=== PATIENT | female | born 1950 | race Caucasian/White ===

== ENCOUNTER → 2017-01-05 | Outpatient (CLI) | payer OTHER | END | disposition home or self-care (01) | LOC: GMAH 17:27 | PROVIDERS: ATTEND Family Medicine | DX: Z77.21 Contact with and (suspected) exposure to potentially hazardous body fluids (principal) ==

== ENCOUNTER 2017-03-03 06:22 | Emergency (ER) | payer OTHER ==
[2017-03-03 06:43] VITALS: BP 118/71; TEMP 99.1; O2SAT 100
--- NOTE | 2017-03-03 06:46 | ED.PDOC ---
History of Present Illness - General Source: patient Exam Limitations: no limitations - History of Present Illness Initial Comments: Courtney Haider 66 y/o female stated she had sudden onset of left knee pain after coming out of the bathroom early this morning .No history of fall or twisting injury. Occurred: just prior to arrival Pain - Lower Extremity: moderate: Left Knee Method of Injury: unknown Improving Factors: rest Worsening Factors: movement Associated Symptoms: Pain on weight bearing <Burt Cleaning - Last Filed: 03/03/17 06:43> <Francisco Macario - Last Filed: 03/03/17 08:01> - General Chief Complaint: Lower Extremity Injury Stated Complaint: left knee swollen and painful Time Seen by Provider: 03/03/17 06:43 - History of Present Illness Allergies/Adverse Reactions: Allergies Penicillin G Allergy (Verified 03/03/17 06:42) Home Medications: Ambulatory Orders Fenofibrate Micronized 134 mg PO DAILY 08/05/16 Levocetirizine Dihydrochloride [Levocetirizine Dihydrochl] 5 mg PO DAILY Lisinopril 20 mg PO DAILY 08/05/16 Meloxicam 15 mg PO DAILY 08/05/16 Pantoprazole Sodium 40 mg PO DAILY 08/05/16 Mjvuzdfhvyyyz-Ysgi-Dtfhcqpcbn [Fioricet] 1 ea PO Q8H PRN #21 tab 03/03/17 Cholecalciferol [Vitamin D] 1,000 unit PO DAILY 03/03/17 Multiple Vitamins W/ Minerals [Multivitamin Adults] 1 tab PO DAILY 03/03/17 Review of Systems - Review of Systems Constitutional: States: no symptoms reported EENTM: States: no symptoms reported Respiratory: States: no symptoms reported Cardiology: States: no symptoms reported Gastrointestinal/Abdominal: States: no symptoms reported Genitourinary: States: no symptoms reported Musculoskeletal: States: see HPI, joint pain, joint swelling - left knee Skin: States: no symptoms reported Neurological: States: no symptoms reported Endocrine: States: no symptoms reported <Burt Cleaning - Last Filed: 03/03/17 06:43> Past Medical History (General) - Patient Medical History Hx Seizures: No Hx Stroke: No Hx Dementia: No Hx Asthma: No Hx of COPD: No Hx Cardiac Disorders: No Hx Congestive Heart Failure: No Hx Pacemaker: No Hx Hypertension: Yes Hx Thyroid Disease: No Hx Diabetes: No Hx Gastroesophageal Reflux: Yes Hx Renal Disease: No Hx Cancer: No Hx of HIV: No Hx Hepatitis C: No Hx MRSA: No Surgical History: other - bunion,btl,hip - Vaccination History Hx Tetanus, Diphtheria Vaccination: Yes Hx Influenza Vaccination: Yes Hx Pneumococcal Vaccination: No Immunizations Up to Date: Yes - Social History Hx Tobacco Use: No Hx Chewing Tobacco Use: No Hx Alcohol Use: Yes Hx Substance Use: No Hx Substance Use Treatment: No Hx Depression: No Feels Threatened In Home Enviroment: No Feels Threatened In a Relationship: No Hx Physical Abuse: No Hx Emotional Abuse: No Hx Suspected Abuse: No - Activities of Daily Living Patient Lives Alone: No - family Grooming Ability: Independent Eating (Feeding) Ability: Independent Toileting Ability: Independent <BlackDallas R - Last Filed: 03/03/17 06:43> Family Medical History - Family History Father Living Status: Age at (years of age): 59 Hx Family Cancer: Yes <BlackDallas R - Last Filed: 03/03/17 06:43> Physical Exam - Physical Exam General Appearance: Alert, Anxious, No apparent distress Eyes, Ears, Nose, Throat: PERRL/EOMI, normal ENT inspection, pharynx normal Neck: non-tender, full range of motion, supple Cardiovascular/Respiratory: regular rate, rhythm, no M/R/G, normal peripheral pulses, no JVD Gastrointestinal/Abdominal: non-tender, no organomegaly Back: normal inspection, no CVA tenderness, no vertebral tenderness Thigh/Hip: normal inspection, no evidence of injury Leg: normal inspection, non-tender, no evidence of injury Knee: no evidence of injury, joint effusion - left knee, pain - left, swelling - left Ankle: normal inspection, no evidence of injury Foot: normal inspection, no evidence of injury Neuro/Tendon: normal sensation, normal motor functions, normal tendon functions Mental Status: alert, oriented x 3 Skin: normal color, warm/dry <BlackDallas R - Last Filed: 03/03/17 06:43> Progress - Progress Progress: 03/03/17 07:55 the patient is a 66-year-old female presenting with fairly sudden onset of swelling to the left knee this morning. Lab work and x-ray are reassuring. X-ray report indicates suprapatellar bursa swelling. Physical exam indicates significant swelling of the knee joint itself. There is no erythema or increased heat as would be more consistent with infection or gout. there is significantly more pain with movement and weightbearing than with external pressure. No other systemic symptoms consistent with infection and no history of gout. While there is no obvious trauma, the sudden onset does indicate at least an internal traumatic pathology, such as a ligament strain or mild cartilage tear. For now, due to pain, we'll have the patient use crutches for the next few weeks. Early next week she needs to be reevaluated to see if further more advanced imaging is warranted. she can continue her meloxicam for now. She was given 1 dose of oral prednisone here today. She will be written for Fioricet for as needed pain control use. She can do nonweightbearing range of motion exercises of the left lower extremity. ER warnings were given for any acute worsening. - Results/Orders Results/Orders: Laboratory Last Values WBC 5.5 K/mm3 (4.8-10.8) 03/03/17 07:00 RBC 4.75 M/mm3 (4.20-5.40) 03/03/17 07:00 Hgb 13.6 gm/dL (12.0-16.0) 03/03/17 07:00 Hct 41.5 % (36.0-47.0) 03/03/17 07:00 MCV 87.3 fl (81.0-99.0) 03/03/17 07:00 MCH 28.7 pg (27.0-31.0) 03/03/17 07:00 MCHC 32.9 g/dL (33.0-37.0) L 03/03/17 07:00 RDW 13.3 % (11.5-14.5) 03/03/17 07:00 Plt Count 277 K/mm3 (130-400) 03/03/17 07:00 MPV 8.4 fl (7.40-10.4) 03/03/17 07:00 Absolute Neuts (auto) 3.30 K/uL (1.8-6.8) 03/03/17 07:00 Absolute Lymphs (auto) 1.60 K/uL (1.0-3.4) 03/03/17 07:00 Absolute Monos (auto) 0.40 K/uL (0.2-0.8) 03/03/17 07:00 Absolute Eos (auto) 0.10 K/uL (0.0-0.4) 03/03/17 07:00 Absolute Basos (auto) 0.10 K/uL (0.0-0.1) 03/03/17 07:00 Neutrophils % 59.7 % (42.0-78.0) 03/03/17 07:00 Lymphocytes % 29.9 % (20.0-50.0) 03/03/17 07:00 Monocytes % 6.9 % (2.0-9.0) 03/03/17 07:00 Eosinophils % 2.6 % (1.0-5.0) 03/03/17 07:00 Basophils % 0.9 % (0.0-2.0) 03/03/17 07:00 Sodium 139 mmol/L (135-145) 03/03/17 07:00 Potassium 4.0 mmol/L (3.6-5.0) 03/03/17 07:00 Chloride 105 mmol/L (101-111) 03/03/17 07:00 Carbon Dioxide 27 mmol/L (21-31) 03/03/17 07:00 Anion Gap 11.0 (12-18) L 03/03/17 07:00 BUN 20 mg/dL (7-18) H 03/03/17 07:00 Creatinine 0.76 mg/dL (0.6-1.3) 03/03/17 07:00 BUN/Creatinine Ratio 26.3 (10-20) H 03/03/17 07:00 Random Glucose 115 mg/dL (70-105) H 03/03/17 07:00 Serum Osmolality 281.1 mOsm/L (275-295) 03/03/17 07:00 Uric Acid mg/dL (2.6-7.2) 03/03/17 07:00 Calcium 9.5 mg/dL (8.4-10.2) 03/03/17 07:00 <Francisco Macario L - Last Filed: 03/03/17 08:01> Departure <Burt Cleaning R - Last Filed: 03/03/17 06:43> - Departure Diet: regular diet Activity: no pushing/pulling with affected limb <Francisco Macario L - Last Filed: 03/03/17 08:01> - Departure Clinical Impression: Knee effusion, left Disposition: Discharge to Home or Self Care Condition: Fair Departure Forms: ED Discharge - Pt. Copy, Patient Portal Self Enrollment Instructions: DI for Knee Effusion Referrals: Yusuf Gonsalves MD [Primary Care Provider] - 1-2 Weeks Prescriptions: Sdbwchenomcyh-Nkrd-Hkghfsazhi [Fioricet] 1 ea PO Q8H PRN #21 tab PRN Reason: Pain Home Medications: Ambulatory Orders Fenofibrate Micronized 134 mg PO DAILY 08/05/16 Levocetirizine Dihydrochloride [Levocetirizine Dihydrochl] 5 mg PO DAILY Lisinopril 20 mg PO DAILY 08/05/16 Meloxicam 15 mg PO DAILY 08/05/16 Pantoprazole Sodium 40 mg PO DAILY 08/05/16 Wkdauclwiociy-Ynej-Ywboyfpjzd [Fioricet] 1 ea PO Q8H PRN #21 tab 03/03/17 Cholecalciferol [Vitamin D] 1,000 unit PO DAILY 03/03/17 Multiple Vitamins W/ Minerals [Multivitamin Adults] 1 tab PO DAILY 03/03/17 Additional Instructions: the patient is a 66-year-old female presenting with fairly sudden onset of swelling to the left knee this morning. Lab work and x-ray are reassuring. X-ray report indicates suprapatellar bursa swelling. Physical exam indicates significant swelling of the knee joint itself. There is no erythema or increased heat as would be more consistent with infection or gout. there is significantly more pain with movement and weightbearing than with external pressure. No other systemic symptoms consistent with infection and no history of gout. While there is no obvious trauma, the sudden onset does indicate at least an internal traumatic pathology, such as a ligament strain or mild cartilage tear. For now, due to pain, we'll have the patient use crutches for the next few weeks. Early next week she needs to be reevaluated to see if further more advanced imaging is warranted. she can continue her meloxicam for now. She was given 1 dose of oral prednisone here today. She will be written for Fioricet for as needed pain control use. She can do nonweightbearing range of motion exercises of the left lower extremity. ER warnings were given for any acute worsening.
[2017-03-03] MEDS ORDERED: KETOROLAC TROMETHAMINE INJ 30 MG/ML VIAL IM ONE (06:47)
--- NOTE | 2017-03-03 07:12 | RAD ---
EXAM: Three view(s) of the left knee. INDICATION: Pain. COMPARISON: None. FINDINGS: No acute fracture or dislocation. There is a moderate size suprapatellar joint effusion. There is joint space narrowing with chondral sclerosis, worse along the patellofemoral joint. Chondrocalcinosis is noted, which can be seen in CPPD arthropathy. IMPRESSION: No acute fracture. Moderate size suprapatellar joint effusion Electronically signed by: Melchor Ceron MD 03/03/2017 7:12 AM CDT Workstation: [id number]
[2017-03-03] MEDS ORDERED: predniSONE 20 MG TAB PO ONE (07:38)
[2017-03-03] MEDS ORDERED: ACETAMINOPHEN-CAFF-BUTALBITAL 1 EA TAB PO SCH (08:00)
== END 2017-03-03 08:17 | disposition home or self-care (01) ==
LOC: ER 06:22
DX: M25.462 Effusion, left knee (principal); I10 Essential (primary) hypertension; K21.9 Gastro-esophageal reflux disease without esophagitis; Z88.0 Allergy status to penicillin; Z79.899 Other long term (current) drug therapy
CPT/HCPCS: 36415; 73560; 80048; 84550; 85025; 85651; J1885; J7512

== ENCOUNTER → 2017-03-17 | Outpatient (CLI) | payer OTHER ==
--- NOTE | 2017-03-18 10:18 | MRI ---
Study: MRI of the Left Knee. Indication: LEFT KNEE PAIN Technique: Multiplanar, multi sequence MRI of the left knee was obtained without intravenous contrast. Comparison: Radiographs March 03, 2017. Findings: ACL, PCL, MCL, and lateral collateral ligament complex intact. Mild degenerative signal changes of the medial and lateral menisci with free edge fraying of the bodies. No high-grade meniscal tearing. Patchy areas of grade 2/3 chondral thinning and minimal grade 4 chondral loss throughout the medial and lateral knee compartments. Small to moderate medial and lateral compartment joint line osteophytes. Patellofemoral extensor mechanism intact. Patella normally located. Extensive grade 4 chondral loss throughout the patellofemoral compartment with significant cortical remodeling the lateral and midline aspects where there are serrated changes of the cortices. Large knee effusion and scattered synovitis/debris. No acute fracture. Impression: Severe patellofemoral compartment osteoarthritis with mild to moderate changes of the medial and lateral compartments. Degenerative changes of the medial and lateral menisci with free edge fraying of the bodies. Large knee effusion. Electronically signed by: Noe Reza MD 03/18/2017 10:17 AM CDT
== END | disposition home or self-care (01) ==
LOC: MRI 11:19
PROVIDERS: ATTEND Nurse Practitioner Acute Care
DX: M25.562 Pain in left knee (principal)

== ENCOUNTER → 2017-12-13 | Outpatient (CLI) | payer OTHER, MEDICARE | LOC: GMAJS 18:26 | PROVIDERS: ATTEND Physician Assistant | DX: N30.00 Acute cystitis without hematuria (principal) ==

== ENCOUNTER → 2018-07-05 | Outpatient (CLI) | payer MEDICARE, OTHER | LOC: GMAH 11:44 | PROVIDERS: ATTEND Family Medicine | DX: N39.0 Urinary tract infection, site not specified (principal); E78.2 Mixed hyperlipidemia ==

== ENCOUNTER → 2020-10-10 | Outpatient (CLI) | payer BC, MEDICARE ==
--- NOTE | 2020-10-11 16:42 | MAM ---
EXAM DESCRIPTION: 3D Screening BILATERAL : Digital Mammography. CLINICAL HISTORY: 69 years Female ANNUAL SCREENING . No complaints. Mother with breast cancer age 75. Female sibling with breast cancer age 61. Remote family history of breast cancer. Menarche age 16. Childbirth age 20. Menopause age 57 . HRT 5 or more years ago. Lifetime risk of developing breast cancer (Tyrer-Cuzick model)(%): 26.4 COMPARISON: Baseline study at this facility. No prior reports available. TECHNIQUE: Bilateral CC and MLO projection full-field images, digital tomosynthesis mammographic technique. Bilateral digital 2-D full-field MLO images. CAD available for 2-D images. FINDINGS: The breast parenchymal density pattern is: Heterogeneously dense breast tissue, which may obscure small masses. Axillary nodes. Largest are in the left axilla. Solitary microcalcifications. Biopsy site marker anterior third left breast upper-outer quadrant. No skin thickening or nipple retraction No new focal, stellate mass or density, focal asymmetry , and no suspicious microcalcifications right breast. IMPRESSION: BI-RADS CATEGORY: 0 - INCOMPLETE- Need additional imaging evaluation. RECOMMENDATIONS: FOLLOW-UP: Recall for additional imaging: Targeted breast ultrasound of left axillary nodes.. Written communication concerning the IMPRESSION and Follow-up, will be mailed to the patient and referring health care provider. Electronically signed by: Joaquim Mason MD 10/11/2020 4:40 PM [facility]
== END ==
LOC: MAMMO 15:31
PROVIDERS: ATTEND Family Medicine
DX: Z12.31 Encounter for screening mammogram for malignant neoplasm of breast (principal)

== ENCOUNTER → 2020-10-24 | Outpatient (CLI) | payer BC, MEDICARE ==
--- NOTE | 2020-10-24 14:51 | US ---
EXAM DESCRIPTION: Breast,Left: Ultrasound. CLINICAL HISTORY: 69 yearsFemaleMAMMO ABNORMAL COMPARISON: Bilateral screening digital breast tomosynthesis October 10. TECHNIQUE: Transcutaneous scanning of the left axilla and axillary tail of the breast utilizing moctezuma-scale and Doppler modes. Scanning performed by the hardwood flooring specialist ; observation by Dr. Mason. FINDINGS: Mostly fatty tissues. Lymph nodes are noted with thin hypoechoic cortex and large region of central and eccentric echogenic hilum with normal vascularity. The cortical regions are not thickened with smooth margins. One lymph node measures 2.4 x 1.2 x 0.9 cm. Second lymph node measures 2.1 x 1.7 x 1.1 cm. The nodes are abutting each other and overall dimension is 3.6 cm long axis. No cysts and no dominant solid mass. No fluid collection or calcifications. Overlying skin changes are not seen. IMPRESSION: Benign exam. BIRAD CATEGORY: 2 BENIGN FINDINGS. RECOMMENDATIONS: FOLLOW UP: Routine digital bilateral mammographic screening, one year interval from September 2020 Written communication explaining the IMPRESSION and follow-up, will be mailed to the patient and referring health care provider. The FINDINGS and the FOLLOW-UP plan were reviewed in person with the patient after the examination. According to the [employer], yearly mammograms are recommended starting at age 40 and continuing as long as a woman is in good health. Any breast change noted on a breast self-exam should be reported promptly to the patient's healthcare provider. Breast MRI is recommended for women with an approximately 20-25% or greater lifetime risk of breast cancer, including women with a strong family history of breast or ovarian cancer and women who have been treated for Hodgkin's disease. A negative mammographic report should not delay tissue diagnosis in patients with significant clinical history or physical findings. Extremely dense breast tissue limits the sensitivity of digital mammography. Electronically signed by: Joaquim Mason MD 10/24/2020 2:50 PM [facility]
== END ==
LOC: US 10:56
PROVIDERS: ATTEND Surgery
DX: R92.8 Other abnormal and inconclusive findings on diagnostic imaging of breast (principal)